=== PATIENT | female | born 1945 | race African-American/Black ===

== ENCOUNTER → 2016-11-17 | Outpatient (CLI) | payer MEDICARE ==
[2014-10-08 10:30] VITALS: BP 140/65
[~2016-11-17] MED LIST: CHOL2000 PO; LINA145C PO; LORA10TA68 PO; METAMUCIL425 GM PO; METO25TA4 PO; PANT40TA5 PO
--- NOTE | 2016-11-17 15:18 | KCIC ---
PROCEDURE Bone mineral density exam HISTORY Postmenopausal, osteoporosis, takes calcium supplement, hysterectomy COMPARISON 11/17/2016 FINDINGS Bone mineral density exam utilizing DEXA was performed. Left hip bone mineral density of 0.779 grams per centimeter square corresponds with T-score-1.3 and a Z-score-0.4. Lumbar spine bone mineral density of 0.935 grams/centimeter square corresponds with T-score-1.0 and a Z-score 0.5. Comparing the lumbar spine with previous exam, there has been 1 percent increase. Comparing the left hip, there has been-5.2 percent decrease. World Health Organization criteria for bone mineral density interpretation: Normal T-score greater than or equal to-1.0, Osteopenia T score between-1.0 and-2.5, Osteoporosis T-score less than or equal to-2.5. IMPRESSION 1. There is normal bone density of the lumbar spine although borderline osteopenia. There is osteopenia of the left hip. Electronically signed by: Eder Del Castillo MD (November 17, 2016 15:16:59)
== END | disposition home or self-care (01) ==
LOC: KCIC DEXA 13:26
PROVIDERS: ATTEND Internal Medicine
DX: Z78.0 Asymptomatic menopausal state (principal); M85.88 Other specified disorders of bone density and structure, other site
CPT/HCPCS: 77080

== ENCOUNTER → 2016-12-24 | Outpatient (CLI) | payer MEDICARE ==
[2014-10-08 10:30] VITALS: BP 140/65
--- NOTE | 2016-12-24 17:26 | KCIC ---
Bilateral digital screening mammograms: Reason for examination: Routine screening. Comparison is made to previous studies dated 12/03/2015 and 05/14/2014. Interpretation was made with the benefit of CAD. The skin and nipples show no abnormalities. No abnormal axillary lymph nodes are seen. The breast parenchyma shows scattered fibroglandular density. (Breast density: Category B.) There continues to be some asymmetric tissue at the 10:00 B position of the right breast which is unchanged. There are no new dominant masses, suspicious calcifications or architectural distortions. Impression: No evidence of malignancy. Recommend routine screening. BI-RADS Category 2: Benign. "Our facility is accredited by the [employer] Mammography [employer]." This patient's information has been entered into a reminder system for the patient to be notified with the results of her examination and a target date for the next mammogram. Electronically signed by: Yvonne Denson MD (12/24/2016 5:22 PM)
== END | disposition home or self-care (01) ==
LOC: KCIC MAMMO 14:56
PROVIDERS: ATTEND Internal Medicine
DX: Z12.31 Encounter for screening mammogram for malignant neoplasm of breast (principal)
CPT/HCPCS: G0202; 77067

== ENCOUNTER → 2017-03-08 | Outpatient (CLI) | payer MEDICARE ==
[2014-10-08 10:30] VITALS: BP 140/65
--- NOTE | 2017-03-08 14:25 | RAD ---
Exam performed: Cervical spine 5 views. History: Neck pain radiating to the shoulder. Date of service: . Comparison: None available Findings: Normal sagittal alignment is preserved see through C7 are visualized. The vertebral body heights are maintained. There is narrowing of C4/5 and C5/6 intervertebral disc spaces with mild arthritic spurring. No compression fracture. No prevertebral soft tissue swelling is identified. The odontoid process appears normal. Oblique views demonstrate mild osteophytic encroachment on the right C4-5 neural foramen. Impression: Spondylotic changes and mild disc degenerative changes involving the cervical spine. No acute abnormality seen.
== END | disposition home or self-care (01) ==
LOC: RAD 12:55
PROVIDERS: ATTEND Internal Medicine
DX: M50.321 Other cervical disc degeneration at C4-C5 level (principal)
CPT/HCPCS: 72050

== ENCOUNTER → 2018-04-12 | Outpatient (CLI) | payer MEDICARE ==
[2014-10-08 10:30] VITALS: BP 140/65
--- NOTE | 2018-04-12 18:18 | KCIC ---
Bilateral digital screening mammograms with 3-D tomosynthesis: Reason for examination: Routine screening. Comparison is made to previous studies dated 12/24/2016 and 12/03/2015. Bilateral mammograms in CC and oblique projections were obtained with 2-D imaging and 3-D tomosynthesis imaging on a Siemens Inspiration unit and reviewed on the workstation. Interpretation was made with the benefit of CAD. The skin and nipples show no abnormalities. No abnormal axillary lymph nodes are seen. The breast parenchyma shows scattered fatty and fibroglandular density. (Breast density: Category B.) There continues to be a nodular asymmetry at the 10:00 B position of the right breast which has not changed. There are small parenchymal densities at the 2:30 B and C positions of the left breast which probably represent intramammary lymph nodes. There are no new dominant masses, suspicious calcifications or architectural distortion. Impression: No evidence of malignancy. Recommend routine screening. BI-RAD Category 2: Benign. "Our facility is accredited by the [employer] Mammography [employer]." This patient's information has been entered into a reminder system for the patient to be notified with the results of her examination and a target date for the next mammogram. Electronically signed by: Yvonne Denson MD (04/12/2018 6:14 PM) [id number]
== END | disposition home or self-care (01) ==
LOC: KCIC MAMMO 12:53
PROVIDERS: ATTEND Internal Medicine
DX: Z12.31 Encounter for screening mammogram for malignant neoplasm of breast (principal); E55.9 Vitamin D deficiency, unspecified; I48.91 Unspecified atrial fibrillation; Z90.710 Acquired absence of both cervix and uterus; Z95.0 Presence of cardiac pacemaker
CPT/HCPCS: 77063; 77067

== ENCOUNTER → 2018-09-29 | Outpatient (CLI) | payer MEDICARE ==
[2014-10-08 10:30] VITALS: BP 140/65
[~2018-09-29] MED LIST changes: -LINA145C PO; +LINZESS145 MCG PO
--- NOTE | 2018-09-29 16:24 | KCIC ---
Indication: Degenerative disc disease. Low back pain TECHNIQUE: 3 views of the lumbar spine COMPARISON: None FINDINGS: There are 5 lumbar type vertebral bodies. Lumbar spine is in normal anatomic alignment. Small anterior ridging osteophytes are seen at multiple levels. No significant intervertebral disc space narrowing seen. SI joints within normal limits. No compression deformities. IMPRESSION: Mild multilevel degenerative disc disease. Electronically signed by: Ryan Owens DO (09/29/2018 4:21 PM) [facility]
== END | disposition home or self-care (01) ==
LOC: KCIC 15:44
PROVIDERS: ATTEND Internal Medicine
DX: M51.36 Other intervertebral disc degeneration, lumbar region (principal); M25.78 Osteophyte, vertebrae
CPT/HCPCS: 72100

== ENCOUNTER → 2019-01-11 | Outpatient (CLI) | payer MEDICARE ==
[2014-10-08 10:30] VITALS: BP 140/65
[~2019-01-11] MED LIST changes: -PANT40TA5 PO; +PANT40TA77 PO
--- NOTE | 2019-01-11 09:36 | CARD ---
MR#: [id number] Date of Study: 01/11/2019 Ordering Physician: LEE VALENCIA, Referring Physician: LEE VALENCIA, Tech: Milly Dyer APPROVED REPORT EXAM: Two-dimensional and M-mode echocardiogram with Doppler and color Doppler. Other Information Quality : GoodHR: 68bpm Rhythm : Pacemaker INDICATION Atrial Fibrillation Surgery/Intervention Pacemaker: Date: 2013 RISK FACTORS Hypertension 2D DIMENSIONS RVDd2.9 (2.9-3.5cm)Left Atrium(2D)3.1 (1.6-4.0cm) IVSd1.0 (0.7-1.1cm)Aortic Root(2D)2.5 (2.0-3.7cm) LVDd4.1 (3.9-5.9cm)LVOT Diameter1.9 (1.8-2.4cm) PWd0.7 (0.7-1.1cm)LVDs2.9 (2.5-4.0cm) FS (%) 30.0 %SV43.8 ml LVEF(%)57.7 (>50%) Aortic Valve AoV Peak Robert.142.8cm/sAoV VTI34.9cm AO Peak GR.8.2mmHgLVOT Peak Robert.93.7cm/s LVOT VTI 23.95cmAO Mean GR.4mmHg RACHEAL (VMAX)1.09vh8FZQ (VTI)1.94cm2 AI P 1/2 Eayl240ge Mitral Valve MV E Jpakjyfh17.1cm/sMV E Peak Gr.82mmHg MV DECEL WPNC305efHW A Vqjmyjee22.2cm/s MV E Mean Gr.2mmHgMV YNA41yq E/A Ratio1.1MVA (PHT)3.92cm2 TDI E/Lateral E'8.0E/Medial E'11.1 Pulmonary Valve PV Peak Dpjqyupr692.6cm/sPV Peak Grad.6mmHg Tricuspid Valve TR P. Qnijshwz239ta/sRAP LYWYJNRV5ywEr TR Peak Gr.41yiPhRXCS26fgDw Pulmonary Vein S1 Gadllyhp07.2cm/sD2 Daorjxqa60.6cm/s PVa qvbciejf717txdk LEFT VENTRICLE The left ventricle is normal size. There is normal left ventricular wall thickness. The left ventricu lar systolic function is normal. The Ejection Fraction is 55-60%. There is normal LV segmental wall m otion. Transmitral Doppler flow pattern is Grade II-pseudonormal filling dynamics. RIGHT VENTRICLE The right ventricle is normal size. There is normal right ventricular wall thickness. The right ventr icular systolic function is normal. There is a pacemaker lead in the right ventricle. ATRIA The left atrium size is normal. There is a The right atrium size is normal. The right atrium size is normal.pacemaker lead seen in the right atrium. The interatrial septum is intact with no evidence for an atrial septal defect or patent foramen ovale as noted on 2-D or Doppler imaging. AORTIC VALVE The aortic valve is normal in structure and function. Doppler and Color Flow revealed mild aortic reg urgitation. There is no significant aortic valvular stenosis. MITRAL VALVE The mitral valve is normal in structure and function. There is no evidence of mitral valve prolapse. There is no mitral valve stenosis. Doppler and Color-flow revealed mild mitral regurgitation. TRICUSPID VALVE The tricuspid valve is normal in structure and function. Doppler and Color Flow revealed mild tricusp id regurgitation with an estimated PAP of 37 mmHg. There is no tricuspid valve stenosis. PULMONIC VALVE The pulmonary valve is normal in structure and function. Doppler and Color Flow revealed trace to mil d pulmonic valvular regurgitation. GREAT VESSELS The aortic root is normal in size. The IVC is normal in size and collapses >50% with inspiration. PERICARDIAL EFFUSION There is no evidence of significant pericardial effusion. Critical Notification Critical Value: No <Conclusion> The left ventricular systolic function is normal. The Ejection Fraction is 55-60%. There is normal LV segmental wall motion. There is a pacemaker lead in the right atrium and right ventricle. Mild aortic regurgitation. Mild mitral regurgitation. Mild tricuspid regurgitation with an estimated PAP of 37 mmHg. There is no evidence of significant pericardial effusion. Signed by : Kevin Bell, Electronically Approved : 01/11/2019 09:36:23
== END | disposition home or self-care (01) ==
LOC: ECHO 08:04
PROVIDERS: ATTEND Internal Medicine Cardiovascular Disease
DX: I08.8 Other rheumatic multiple valve diseases (principal); I48.91 Unspecified atrial fibrillation; Z95.0 Presence of cardiac pacemaker
CPT/HCPCS: 93306

== ENCOUNTER → 2019-05-24 | Outpatient (CLI) | payer MEDICARE ==
[2014-10-08 10:30] VITALS: BP 140/65
--- NOTE | 2019-05-24 17:03 | KCIC ---
Bilateral digital screening mammograms with 3-D tomosynthesis: Reason for examination: Routine screening. Comparison is made to previous studies dated 04/12/2018 and 12/24/2016. Bilateral mammograms in CC and oblique projections were obtained with 2-D imaging and 3-D tomosynthesis imaging on a Siemens Inspiration unit and reviewed on the workstation. Interpretation was made with the benefit of CAD. A pacemaker appears to be present on the left. The skin and nipples show no abnormalities. No abnormal axillary lymph nodes are seen. The breast parenchyma shows scattered fatty and fibroglandular density. (Breast density: Category B.) There continues to be some nodular parenchymal asymmetry in the 10:00 position of the right breast posteriorly which is stable. There are no new dominant masses, suspicious calcifications or architectural distortion. Impression: No evidence of malignancy. Recommend routine screening. BI-RAD Category 2: Benign. "Our facility is accredited by the [employer] Mammography Program." This patient's information has been entered into a reminder system for the patient to be notified with the results of her examination and a target date for the next mammogram. Electronically signed by: Yvonne Denson MD (05/24/2019 5:00 PM) [facility]
--- NOTE | 2019-05-24 17:29 | KCIC ---
Bone mineral density exam History: Estrogen deficiency, osteoporosis, hysterectomy Comparison: 11/17/2016 Findings: Bone mineral density examination utilizing DEXA was performed. Left hip bone mineral density of 0.814 g/cm2 corresponds with a T score -1.1, Z score -0.2. There has been 4.4% increase. The bone mineral density of the lumbar spine was 0.942 g/cm2 which corresponds with a T-score of -1.0, Z score 0.7. There has been 0.7% increase. By World Congress on Osteoporosis criteria, a T score of 0 to-1 SD is considered to be within normal limits. A T score of -1 to -2.5 SD is considered osteopenia. A T score less than -2.5 SD is considered osteoporosis Impression: 1. There is osteopenia of the left hip. Bone mineral density of the lumbar spine is within normal limits (although borderline osteopenia). Electronically signed by: Jorge Del Castillo MD (05/24/2019 5:26 PM) [id number]
== END | disposition home or self-care (01) ==
LOC: KCIC MAMMO 14:46
PROVIDERS: ATTEND Internal Medicine
DX: Z12.31 Encounter for screening mammogram for malignant neoplasm of breast (principal); M81.0 Age-related osteoporosis without current pathological fracture; M85.88 Other specified disorders of bone density and structure, other site; N64.89 Other specified disorders of breast; Z90.710 Acquired absence of both cervix and uterus
CPT/HCPCS: 77063; 77067; 77080

== ENCOUNTER → 2020-01-25 | Outpatient (CLI) | payer MEDICARE ==
[2014-10-08 10:30] VITALS: BP 140/65
--- NOTE | 2020-01-25 15:53 | CARD ---
MR#: [id number] Date of Study: 01/25/2020 Ordering Physician: LEE VALENCIA, Referring Physician: LEE VALENCIA, Tech: Milly Dyer APPROVED REPORT EXAM: Two-dimensional and M-mode echocardiogram with Doppler and color Doppler. Other Information Quality : AverageHR: 67bpm INDICATION Paroxsomal Superventricular Tachycardia Surgery/Intervention Pacemaker: Date: 2013 RISK FACTORS Hypertension 2D DIMENSIONS RVDd3.4 (2.9-3.5cm)Left Atrium(2D)3.6 (1.6-4.0cm) IVSd1.0 (0.7-1.1cm)Aortic Root(2D)2.8 (2.0-3.7cm) LVDd4.0 (3.9-5.9cm)LVOT Diameter1.9 (1.8-2.4cm) PWd1.1 (0.7-1.1cm)LVDs2.3 (2.5-4.0cm) FS (%) 43.9 %SV53.5 ml LVEF(%)75.7 (>50%) Aortic Valve AoV Peak Robert.125.8cm/sAoV VTI29.3cm AO Peak GR.6.3mmHgLVOT Peak Robert.92.9cm/s LVOT VTI 23.81cmAO Mean GR.3mmHg RACHEAL (VMAX)1.40gp1UCK (VTI)2.36cm2 Mitral Valve MV E Cgpsznkg22.1cm/sMV DECEL LKUP843ch MV A Ebvxjrvp31.2cm/sMV E Mean Gr.2mmHg MV DVX45cyC/A Ratio1.1 MVA (PHT)4.02cm2 TDI E/Lateral E'7.4E/Medial E'8.9 Pulmonary Valve PV Peak Lcbtqgcr766.9cm/sPV Peak Grad.4mmHg Tricuspid Valve TR P. Iwfarral754vg/sRAP BOPUVZNZ1ulEm TR Peak Gr.49lqOuGKOM00paAx Pulmonary Vein S1 Xcmxdeqk80.6cm/sD2 Htghpdga54.3cm/s PVa scddrzss564lify LEFT VENTRICLE The left ventricle is normal size. There is normal left ventricular wall thickness. The left ventricu lar systolic function is normal. The Ejection Fraction is 55-60%. There is normal LV segmental wall m otion. Transmitral Doppler flow pattern is Grade II-pseudonormal filling dynamics. RIGHT VENTRICLE The right ventricle is normal size. There is normal right ventricular wall thickness. The right ventr icular systolic function is normal. There is a pacemaker lead in the right ventricle. ATRIA The left atrium size is normal. The right atrium size is normal. The interatrial septum is intact wit h no evidence for an atrial septal defect or patent foramen ovale as noted on 2-D or Doppler imaging. AORTIC VALVE The aortic valve is thickened but opens well. Doppler and Color Flow revealed mild aortic regurgitati on. There is no significant aortic valvular stenosis. MITRAL VALVE The mitral valve is normal in structure and function. There is no evidence of mitral valve prolapse. There is no mitral valve stenosis. Doppler and Color-flow revealed mild mitral regurgitation. TRICUSPID VALVE The tricuspid valve is normal in structure and function. Doppler and Color Flow revealed mild tricusp id regurgitation with an estimated PAP of 34 mmHg. There is no tricuspid valve stenosis. PULMONIC VALVE The pulmonic valve is not well visualized. Doppler and Color Flow revealed trace pulmonic valvular re gurgitation. GREAT VESSELS The aortic root is normal in size. The IVC is normal in size and collapses >50% with inspiration. PERICARDIAL EFFUSION There is no evidence of significant pericardial effusion. Critical Notification Critical Value: No <Conclusion> The left ventricular systolic function is normal. The Ejection Fraction is 55-60%. There is normal LV segmental wall motion. There is a pacemaker lead in the right ventricle. Mild aortic regurgitation. Mild mitral regurgitation. Mild tricuspid regurgitation with an estimated PAP of 34 mmHg. There is no evidence of significant pericardial effusion. Signed by : Kevin Bell, Electronically Approved : 01/25/2020 15:53:15
== END | disposition home or self-care (01) ==
LOC: ECHO 14:01
PROVIDERS: ATTEND Internal Medicine Cardiovascular Disease
DX: I08.3 Combined rheumatic disorders of mitral, aortic and tricuspid valves (principal); I47.1 Supraventricular tachycardia; Z95.0 Presence of cardiac pacemaker
CPT/HCPCS: 93306

== ENCOUNTER → 2020-08-30 | Outpatient (CLI) | payer MEDICARE ==
[2014-10-08 10:30] VITALS: BP 140/65
--- NOTE | 2020-09-02 03:41 | RAD ---
STUDY: CT chest without contrast INDICATION: Chest pain at rest. COMPARISON: None. TECHNIQUE: Helical CT imaging of the chest performed without the use of intravenous contrast. Sagitta l and coronal reformats were obtained. One or more of the following individualized dose reduction techniques were utilized for this examinat ion: 1. Automated exposure control 2. Adjustment of the mA and/or kV according to patient size 3. Use of iterative reconstruction technique. FINDINGS: Vasculature: Nonaneurysmal aorta. Main pulmonary artery transverse dimension is within normal limits. Two vessel arch. Left chest wall dual-lead pacer. Lead positioning is within normal limits. Mediastinum/umair: Moderate-sized hiatal hernia. Lungs: Small, incompletely circumscribed nodule at the left upper lobe, image 16 series 2 measuring 5 .5 mm transverse. Millimetric right middle lobe pleural-based nodular focus, image 25 series 2. No lo calized airspace infiltrate, pleural effusion or pneumothorax. Patent central airways. Neck/axilla/chest wall: Axillary lymph nodes bilaterally most of which exhibit benign features with t hin cortices and a fatty hilum. A more solid left axillary nodule on image 17 series 2 does not meet pathologic criteria based on size measuring 0.9 cm short axis. No dedicated follow-up is needed unles s otherwise clinically indicated. Bones: No acute or aggressive osseous process. Upper abdomen: Large right renal cystic focus measuring simple density and a maximum dimension of 8.3 cm. Probable peripelvic cysts on the left. A few small low-attenuation foci within the liver such as on images 37, 45 and 47 series 2. These are subcentimeter in size. IMPRESSION: 1. No acute abnormality is identified to explain the patient's chest pain. 2. Left upper lobe nodule measures up to 5.5 cm. Per Fleischner guidelines, if there are risk factor s follow-up could be performed in 6 to 12. 3. Subcentimeter hypoattenuating foci in the liver (at least three) that are not fully characterized but statistically most likely benign. Follow-up with MRI or multiphase CT only if there are risk fac tors for or a history of malignancy. 4. Moderate-sized hiatal hernia. Correlate for a history of reflux that could explain chest pain. Electronically signed by: CUCA MCKINLEY MD (09/02/2020 3:39 AM) [facility] [place]
== END ==
LOC: CT 10:05
PROVIDERS: ATTEND Internal Medicine
DX: R91.1 Solitary pulmonary nodule (principal); K44.9 Diaphragmatic hernia without obstruction or gangrene
CPT/HCPCS: 71250

== ENCOUNTER → 2021-05-02 | Outpatient (CLI) | payer MEDICARE ==
[2014-10-08 10:30] VITALS: BP 140/65
--- NOTE | 2021-05-04 17:21 | CARD ---
MR#: [id number] Date of Study: 05/02/2021 Ordering Physician: LEE VALENCIA, Referring Physician: LEE VALENCIA, Tech: Tequila Burkett [facility] APPROVED REPORT EXAM: Two-dimensional and M-mode echocardiogram with Doppler and color Doppler. Other Information Quality : AverageHR: 59bpm Rhythm : NSR INDICATION Hypertension/HCVD RISK FACTORS Hypertension 2D DIMENSIONS RVDd2.1 (2.9-3.5cm)Left Atrium(2D)3.1 (1.6-4.0cm) IVSd1.0 (0.7-1.1cm)Aortic Root(2D)2.7 (2.0-3.7cm) LVDd3.6 (3.9-5.9cm)LVOT Diameter2.0 (1.8-2.4cm) PWd0.9 (0.7-1.1cm)LVDs2.2 (2.5-4.0cm) FS (%) 39.8 %SV38.7 ml LVEF(%)71.4 (>50%) Aortic Valve AoV Peak Robert.122.0cm/sAoV VTI30.6cm AO Peak GR.6.0mmHgLVOT Peak Robert.87.3cm/s AO Mean GR.3mmHgAVA (VMAX)2.34cm2 AI P 1/2 Mpcb908qu Mitral Valve MV E Rhkxjirs51.2cm/sMV DECEL GVFP418nm MV A Vlqwumto594.1cm/sE/A Ratio0.7 Pulmonary Valve PV Peak Zulqhihu34.5cm/s Tricuspid Valve TR P. Aacongvl508gb/sTR Peak Gr.26mmHg LEFT VENTRICLE The left ventricle is normal size. There is normal left ventricular wall thickness. The left ventricu lar systolic function is normal and the ejection fraction is within normal range. Estimated ejection fraction 55%. There is normal LV segmental wall motion. Transmitral Doppler flow pattern is Grade I-a bnormal relaxation pattern. RIGHT VENTRICLE The right ventricle is normal size. There is normal right ventricular wall thickness. The right ventr icular systolic function is normal. There is a pacing lead in the RA/RV. ATRIA The left atrium size is normal. The right atrium size is normal. The interatrial septum is intact wit h no evidence for an atrial septal defect or patent foramen ovale as noted on 2-D or Doppler imaging. AORTIC VALVE The aortic valve is normal in structure and function. Doppler and Color Flow revealed mild aortic reg urgitation. There is no significant aortic valvular stenosis. MITRAL VALVE The mitral valve is normal in structure and function. There is no evidence of mitral valve prolapse. There is no mitral valve stenosis. Doppler and Color-flow revealed mild mitral regurgitation. TRICUSPID VALVE The tricuspid valve is normal in structure and function. Doppler and Color Flow revealed mild tricusp id regurgitation. Estimated PAP 20 mmHg. There is no tricuspid valve stenosis. PULMONIC VALVE Doppler and Color Flow revealed no pulmonic valvular regurgitation. There is no pulmonic valvular ayaka nosis. GREAT VESSELS The aortic root is normal in size. The ascending aorta is normal in size. The IVC is normal in size a nd collapses >50% with inspiration. PERICARDIAL EFFUSION There is no evidence of significant pericardial effusion. Critical Notification Critical Value: No <Conclusion> The left ventricular systolic function is normal and the ejection fraction is within normal range. E stimated ejection fraction 55%. There is normal LV segmental wall motion. There is a pacing lead in the RA/RV. Signed by : Lee Valencia, Electronically Approved : 05/04/2021 17:21:23
== END ==
LOC: CARD 12:30
PROVIDERS: ATTEND Internal Medicine Cardiovascular Disease
DX: I08.3 Combined rheumatic disorders of mitral, aortic and tricuspid valves (principal); I48.91 Unspecified atrial fibrillation; I10 Essential (primary) hypertension; Z86.79 Personal history of other diseases of the circulatory system
CPT/HCPCS: 93306

== ENCOUNTER → 2021-11-12 | Outpatient (CLI) | payer MEDICARE ==
[2014-10-08 10:30] VITALS: BP 140/65
--- NOTE | 2021-11-13 16:49 | KCIC ---
Bilateral digital screening 2-D and 3-D (digital breast tomosynthesis) mammogram: Reason for examination: Routine screening. Comparison: Mammograms from April 12, 2018 and 05/24/2019. FINDINGS: Breast density: Category B. There are scattered areas of fibroglandular density. No suspicious breast mass, malignant appearing calcifications, or architectural distortion is seen. T here is a small oval circumscribed mass in the 6:00 retroareolar region of the left breast which is u nchanged. There is focal asymmetrical fibroglandular tissue in the right upper outer quadrant that is stable IMPRESSION: No evidence of malignancy. Assessment: BI-RADS 2. Benign findings. Recommendation: Routine screening mammograms. The patient will receive a letter with the results in the mail. Patient information will be entered i nto the mammography reminder system with a target recall date for the next mammogram. A reminder marcy er will be generated. Electronically signed by: Stefania Garcia MD (11/13/2021 4:47 PM) [email or web address]
== END ==
LOC: KCIC MAMMO 14:05
PROVIDERS: ATTEND Internal Medicine
DX: Z12.31 Encounter for screening mammogram for malignant neoplasm of breast (principal)
CPT/HCPCS: 77063; 77067